=== PATIENT | female | born 1940 | race African-American/Black ===

== ENCOUNTER 2016-07-30 07:16 | Emergency (ER) | payer MEDICARE, OTHER ==
[2016-07-30 06:43] LABS: BASOPHILS 0.3 %; BASOPHILS ABSOLUTE 0.03 10/3/uL (0.0-0.16); EOSINOPHILS ABSOLUTE 0.24 10/3/uL (0.0-0.53); ER CBC TAT 0 Hrs 06 MinsNP; HEMATOCRIT 42.7 % (36.0-48.0); HEMOGLOBIN 14.4 g/dL (12.0-16.0); IMMATURE GRANULOCYTES 0.3 %; IMMATURE GRANULOCYTES ABSOLUTE 0.04 10/3/uL (0.0-0.11); LYMPHOCYTES 14.5 %; LYMPHOCYTES ABSOLUTE 1.74 10/3/uL (0.67-4.30); MANUAL DIFF NO %; MEAN CORPUS HGB CONC 33.7 g/dL (32.0-36.0); MEAN CORPUSCULAR HEMOGLOB 32.1 pg (26.0-34.0); MEAN CORPUSCULAR VOLUME 95.1 fL (80-100); MEAN PLATELET VOLUME 10.9 fL (9.2-13.0); MONOCYTES ABSOLUTE 1.08 10/3/uL (0.21-1.20); NEUTROPHILS 73.9 %; NEUTROPHILS ABSOLUTE 8.84 10/3/uL (2.02-8.40); PLATELET COUNT 273 10/3/uL (150-400); RED CELL COUNT 4.49 10/6/uL (4.0-5.6)
[2016-07-30 07:01] LABS: A/G RATIO 0.9 (0.7-1.9); ALBUMIN 3.5 G/DL (3.5-5.0); CALCIUM, SERUM 9.1 MG/DL (8.5-10.4); CHLORIDE, SERUM 98 MMOL/L (96-112); CO2 (CARBON DIOXIDE) 28 MMOL/L (24-34); CREATININE 6.72 MG/DL (0.55-1.02); GFR AFRICAN AMERICAN 6 ML/MIN (>=60); GFR NON AFRICAN AMERICAN 5 ML/MIN (>=60); GLOBULIN 3.8 G/DL (2.5-4.1); POTASSIUM, SERUM 3.8 MMOL/L (3.5-5.3); SGOT(AST) 12 U/L (5-40); SGPT(ALT) 11 U/L (5-65); SODIUM, SERUM 138 MMOL/L (135-148); TOTAL BILIRUBIN 0.3 MG/DL (0-1.2); TOTAL PROTEIN 7.3 G/DL (6.0-8.5)
[2016-07-30 07:05] LABS: ALKALINE PHOSPHATASE 53 U/L (45-117); BUN (BLOOD UREA NITROGEN) 44 MG/DL (6-23); GLUCOSE, SERUM 163 MG/DL (60-99)
[~2016-07-30 07:16] MED LIST: ASAB PO; AT25 PO; BEN25 PO; CAT1 PO; COREG12 PO; COREG25 PO; GLUCOPHAGE1000 MG PO; HUMALOG SC; HUMALOGPEN SC; HUMULIN R1 ML SC; HYDRALAZINE100 MG PO; L40 PO; LANTUS SC; LEVEMFLXPN SC; LEVEMIR SC; LOP50 PO; MEGACEUDL PO; PRAVACHOL40 MG PO; PRIN20 PO; PRINZIDE PO; RENVELA800 MG PO; SEVE800T PO; SODBICAR10 PO; ZOCOR20 PO
[2016-11-27] MEDS ORDERED: ASAB PO (12:00)
[2016-11-27] MEDS ORDERED: PEG PREP (12:03)
[2016-11-27] MEDS ORDERED: BIST PO (12:05)
[2016-11-27] MEDS ORDERED: OXYGEN (12:10)
[2016-11-27] MEDS ORDERED: MIRALAX POWDER1 PKT PO (12:11)
[2016-11-27] MEDS ORDERED: INSTRINSI PO (12:12)
[2016-11-27] MEDS ORDERED: DUONEB INH ×2 (12:12→12:14)
[2016-11-27] MEDS ORDERED: MEDS (12:54)
== END 2016-07-30 08:16 | disposition home or self-care (01) ==
LOC: ER 07:16
PROVIDERS: Specialist
DX: J81.1 Chronic pulmonary edema (principal); I12.0 Hypertensive chronic kidney disease with stage 5 chronic kidney disease or end stage renal disease; N18.6 End stage renal disease; Z91.14 Patient's other noncompliance with medication regimen; E11.22 Type 2 diabetes mellitus with diabetic chronic kidney disease; Z95.5 Presence of coronary angioplasty implant and graft; Z99.2 Dependence on renal dialysis; Z91.013 Allergy to seafood; Z91.010 Allergy to peanuts; Z88.8 Allergy status to other drugs, medicaments and biological substances; Z79.4 Long term (current) use of insulin; Z79.899 Other long term (current) drug therapy
CPT/HCPCS: 71010; 80053; 85025; 93005; 96372; 99285